=== PATIENT | female | born 1950 | race Caucasian/White ===

== ENCOUNTER → 2016-05-12 | Outpatient (REF) | payer MEDICARE | LOC: M SFHCPLAZ 15:56 | PROVIDERS: ATTEND Nurse Practitioner Adult Health | DX: R73.9 Hyperglycemia, unspecified (principal) ==

== ENCOUNTER → 2016-08-28 | Outpatient (CLI) | payer MEDICARE ==
--- NOTE | 2016-09-01 09:34 | DEXA ---
AP SPINE L1 - L4 1.287 0.7 1.6 LT FEMUR TOTAL 0.944 -0.5 0.3 RT FEMUR TOTAL 0.905 -0.8 0.0 TOTAL BODY TOTAL OTHER DUAL FEMUR FRAX* ASSESSMENT Risk factors: None. 10 year probability of fracture Major osteoporotic fracture 8.6 % Hip fracture 0.9 % COMMENTS: Normal bone densitometry of the spine. There is low bone density of hips. The density of the spine is increased 3.0% since initial exam on 08/2012. The spine density has decreased 0.1% since the most recent exam on 08/2014. The density of the left hip has decreased 1.6% since initial exam on 08/2012. The density of the left hip has decreased 1.9% since the most recent exam on 2014. The density of the right hip has increased 0.7% since the initial exam on 2012. The density of the right hip has decreased 0.8% since the most recent exam on 2014. FOLLOW-UP: Recommendation for the next bone density exam: 2 years. TOBI
== END ==
LOC: M WHC 12:59
PROVIDERS: ATTEND Nurse Practitioner Women's Health
DX: Z13.820 Encounter for screening for osteoporosis (principal); Z78.0 Asymptomatic menopausal state

== ENCOUNTER → 2016-10-16 | Outpatient (REF) | payer MEDICARE | LOC: M SFHCPLAZ 09:40 | PROVIDERS: ATTEND Nurse Practitioner Adult Health | DX: Z11.59 Encounter for screening for other viral diseases (principal) ==

== ENCOUNTER → 2016-10-19 | Outpatient (REF) | payer MEDICARE ==
[2016-10-19 14:53] LABS: IMMUNOGLOBULIN G 1140 MG/DL (681-1648); IMMUNOGLOBULIN M 132 MG/DL (40-230); TOTAL PROTEIN 7.4 GM/DL (6.4-8.2)
[2016-10-21 00:09] LABS: BETA 2 MICROGLOBULIN 1.9 mg/L (0.6-2.4); FREE KAPPA LIGHT CHAINS SERUM 24.3 mg/L (3.3-19.4); FREE LAMBDA LIGHT CHAINS SERUM 19.5 mg/L (5.7-26.3); KAPPA/LAMBDA RATIO SERUM 1.25 (0.26-1.65)
[2016-10-21 10:53] LABS: ALBUMIN 4.54 GM/DL (3.29-5.55); ALBUMIN % 61.3 % (55.8-66.1); GAMMA GLOBULIN % 16.1 % (11.1-18.8)
== END ==
LOC: M LAB REF 12:46
PROVIDERS: ATTEND Internal Medicine Medical Oncology
DX: D47.2 Monoclonal gammopathy (principal)

== ENCOUNTER → 2016-10-23 | Outpatient (CLI) | payer MEDICARE ==
--- NOTE | 2016-10-23 15:19 | REP ---
REASON: Monoclonal gammopathy. PRIORS: None. AP and lateral views of the skull show multiple lytic skull lesions. AP and lateral views of the cervical spine show the bones to be demineralized. Some vertebral bodies have a mild corduroy appearance. Degenerative change is seen throughout the cervical spine with disc space narrowing and osteophytosis, particularly C4-5 through C6-7. AP VIEW OF THE HUMERUS, BILATERAL: No evidence of a lytic or blastic osseous lesion. AP PELVIS: Subtle focal area of decreased density seen in the left femur greater trochanter. AP EXAMINATION, RIGHT FEMUR: There is no evidence of a lytic or blastic osseous lesion. AP EVALUATION OF THE LEFT FEMUR: No definite lytic or blastic osseous lesion. The subtle area of decreased density seen on the AP pelvis must have been artifactual. AP/LATERAL VIEWS OF THE THORACIC SPINE: A few thoracic vertebral bodies have a corduroy appearance. There is no definite evidence of a vertebral body lytic or blastic osseous lesion. There is degenerative change seen throughout the thoracic spine with disc space narrowing and anterior lipping. Vertebral body height is within normal limits. The pedicles appear to be intact bilaterally. AP/LATERAL VIEWS OF LUMBAR SPINE: There is a grade 1, L4 upon L5 spondylolisthesis with L2 on L3 and L3 on L4 retrolisthesis. Advanced disc space narrowing is seen at L2-3 with endplate sclerosis. There is narrowing of all disc spaces. Degenerative facet joint changes are present at L4-5 and L5-S1 bilaterally. There is no definite evidence of a lytic or blastic osseous lesion. The pedicles appear to be intact bilaterally. IMPRESSION: 1. Multiple lytic lesions, as described above, consistent with the patient's diagnosis. 2. Other findings as described above. 3. Possible irregular cortex with decreased density right 11th rib, very difficult to evaluate on the AP examination of the thoracic spine. Signed by Terrell Rico DO 10/23/2016 04:49 P
== END ==
LOC: M RAD 12:08
PROVIDERS: ATTEND Nurse Practitioner Family
DX: D47.2 Monoclonal gammopathy (principal)

== ENCOUNTER → 2016-11-04 | Outpatient (CLI) | payer MEDICARE ==
--- NOTE | 2016-11-04 08:20 | REP ---
CT Head without contrast HISTORY: monoclonal gammopathy COMPARISON: None There is no intraparenchymal hemorrhage, acute infarct, mass or midline shift. The ventricular system is normal in appearance. There is no extra cerebral collection. There is no fracture. There are several small lytic lesions in the calvarium. The visualized sinuses are clear. IMPRESSION: 1. There is no intracranial lesion. 2. There are several small lytic lesions in the calvarium. Signed by Luis Gracia MD 11/04/2016 08:12 A
== END ==
LOC: M RAD 07:21
PROVIDERS: ATTEND Internal Medicine Medical Oncology
DX: R93.7 Abnormal findings on diagnostic imaging of other parts of musculoskeletal system (principal)

== ENCOUNTER → 2016-11-19 | Outpatient (REF) | payer MEDICARE | LOC: M LAB REF 14:09 | PROVIDERS: ATTEND Internal Medicine Medical Oncology | DX: D47.2 Monoclonal gammopathy (principal); D69.3 Immune thrombocytopenic purpura ==

== ENCOUNTER → 2017-06-03 | Outpatient (REF) | payer MEDICARE ==
[2017-06-03 14:14] LABS: CHOLESTEROL LEVEL 170 MG/DL (<200); CHOLESTEROL RISK RATIO 2.615 (<5); HDL CHOLESTEROL 65 MG/DL (>40); NON-HDL-C 105 MG/DL; TRIGLYCERIDES LEVEL 80 MG/DL (<150)
[2017-06-03 15:14] LABS: ESTIMATED AVERAGE GLUCOSE 120 MG/DL (60-110); HEMOGLOBIN A1c 5.8 %
== END ==
LOC: M SFHCPLAZ 10:02
DX: M89.9 Disorder of bone, unspecified (principal); R73.03 Prediabetes; Z79.899 Other long term (current) drug therapy
CPT/HCPCS: 83036

== ENCOUNTER 2017-06-07 09:30 | Day surgery (SDC) | payer MEDICARE ==
[2017-06-07] MEDS: NS 1,000 ML IV (10:45)
[2017-06-07] MEDS ORDERED: LIDOCAINE 2% INJ 100 MG/5 ML SDV (FOR ANES.) As Ordered (10:47)
[2017-06-07] MEDS ORDERED: PROPOFOL 200 MG/20 ML VIAL As Ordered (10:47)
[2017-06-07] MEDS ORDERED: fentaNYL 100 MCG/2 ML INJECTION (J3010) As Ordered (11:38)
== END 2017-06-07 12:27 | disposition home or self-care (01) ==
LOC: M OPP 09:30
DX: R13.10 Dysphagia, unspecified (principal); F45.8 Other somatoform disorders; K22.2 Esophageal obstruction; K44.9 Diaphragmatic hernia without obstruction or gangrene; I34.1 Nonrheumatic mitral (valve) prolapse; E04.1 Nontoxic single thyroid nodule; K76.0 Fatty (change of) liver, not elsewhere classified; E80.4 Gilbert syndrome; R12 Heartburn; K21.9 Gastro-esophageal reflux disease without esophagitis; D47.2 Monoclonal gammopathy; D69.3 Immune thrombocytopenic purpura; R06.02 Shortness of breath; M19.90 Unspecified osteoarthritis, unspecified site; M54.89 Other dorsalgia; R21 Rash and other nonspecific skin eruption; F41.9 Anxiety disorder, unspecified; F32.9 Major depressive disorder, single episode, unspecified; G43.909 Migraine, unspecified, not intractable, without status migrainosus; G47.30 Sleep apnea, unspecified; J32.9 Chronic sinusitis, unspecified; Z87.891 Personal history of nicotine dependence; M62.81 Muscle weakness (generalized); Z88.0 Allergy status to penicillin; Z88.3 Allergy status to other anti-infective agents; Z88.5 Allergy status to narcotic agent; Z88.8 Allergy status to other drugs, medicaments and biological substances; Z91.048 Other nonmedicinal substance allergy status; Z79.899 Other long term (current) drug therapy; Z80.3 Family history of malignant neoplasm of breast
CPT/HCPCS: 43249

== ENCOUNTER → 2017-07-16 | Outpatient (REF) | payer MEDICARE ==
[2017-07-20 14:14] LABS: COPROPORPHYRIN I URINE 61 ug/L (0-15); COPROPORPHYRIN III URINE 8 ug/L (0-49); HEPTACARBOXYLPORPHYRIN URINE 8 ug/L (0-2); HEXACARBOXYLPORPHYRIN URINE <1 ug/L (0-1); PENTACARBOXYLPORPHYRIN URINE 2 ug/L (0-2); UROPORPHYRIN URINE 17 ug/L (0-20)
[2017-07-22 14:13] LABS: PORPHYRIN TOTAL PLASMA <0.1 ug/dL (0.0-1.0)
== END ==
LOC: M LAB REF 13:12
DX: D47.2 Monoclonal gammopathy (principal)
CPT/HCPCS: 84120

== ENCOUNTER → 2017-07-22 | Outpatient (CLI) | payer MEDICARE | LOC: M RAD 09:28 | DX: M89.9 Disorder of bone, unspecified (principal) | CPT/HCPCS: 78306 ==

== ENCOUNTER → 2017-07-30 | Outpatient (REF) | payer MEDICARE ==
[2017-08-05 00:07] LABS: PORPHOBILINOGEN RANDOM URINE 1.7 mg/L (0.0-2.0)
== END ==
LOC: M LAB REF 12:55
DX: D69.3 Immune thrombocytopenic purpura (principal); D47.2 Monoclonal gammopathy
CPT/HCPCS: 84110

== ENCOUNTER → 2017-09-02 | Outpatient (REF) | payer MEDICARE ==
[2017-09-02 16:32] LABS: ALBUMIN 4.1 GM/DL (3.2-5.2); ALBUMIN/GLOBULIN RATIO 1.32 (1.00-1.93); ALKALINE PHOSPHATASE 58 U/L (45-117); ALT/SGPT 24 U/L (12-78); ANION GAP 5 MEQ/L (8-16); AST/SGOT 15 U/L (7-37); BILIRUBIN,TOTAL 0.9 MG/DL (0.2-1.0); BLOOD UREA NITROGEN 18 MG/DL (7-18); CALCIUM LEVEL 8.8 MG/DL (8.8-10.2); CARBON DIOXIDE LEVEL 30 MEQ/L (21-32); CHLORIDE LEVEL 108 MEQ/L (98-107); CREATININE FOR GFR 0.69 MG/DL (0.55-1.30); GLOMERULAR FILTRATION RATE > 60.0 (>45); GLUCOSE, FASTING 86 MG/DL (70-100); POTASSIUM SERUM 4.4 MEQ/L (3.5-5.1); RHEUMATOID FACTOR QUANT < 10.0 IU/ML (<15.0); SODIUM LEVEL 143 MEQ/L (136-145); TOTAL PROTEIN 7.2 GM/DL (6.4-8.2)
[2017-09-02 17:17] LABS: HEMATOCRIT 42.2 % (36.0-47.0); MEAN CORPUSCULAR HEMOGLOBIN 26.1 pg (27.0-33.0); MEAN CORPUSCULAR HGB CONC 30.8 g/dl (32.0-36.5); MEAN CORPUSCULAR VOLUME 84.6 fl (80.0-96.0); PLATELET COUNT, AUTOMATED 132 10^3/uL (150-450); RED BLOOD COUNT 4.99 10^6/uL (4.00-5.40); RED CELL DISTRIBUTION WIDTH 19.7 % (11.5-14.5); WHITE BLOOD COUNT 7.2 10^3/uL (4.0-10.0)
[2017-09-02 17:56] LABS: ADD MANUAL DIFFER YES; DIFF SLIDE NUMBER 327; POS COUNT POS FLAG; POSITIVE MORPH POS FLAG
[2017-09-02 18:03] LABS: EOSINOPHILS 5 % (0-5); MONOCYTES 16 % (0-8); NEUTROPHILS 46 % (35-75)
[2017-09-02 18:21] LABS: ATYPICAL LYMPH 6 % (0-5); GIANT PLATELETS 1+; LYMPHOCYTES 27 % (16-52); PLATELET CLUMPS SMALL AMT; PLATELET ESTIMATE INVALID (NORMAL)
[2017-09-02 18:22] LABS: HOWELL-JOLLY BODIES 1+; MICROCYTOSIS 1+
[2017-09-02 18:23] LABS: ANISOCYTOSIS 3+
[2017-09-02 18:24] LABS: SCHISTOCYTES 1+
[2017-09-02 18:40] LABS: ERYTHROCYTE SEDIMENTATION RATE 1 mm/hr (0-30)
[2017-09-03 09:53] LABS: TOTAL 25(OH) VITAMIN D 34.1 NG/ML (30.0-100.0)
[2017-09-04 14:09] LABS: ANTINUCLEAR ANTIBODIES DIRECT Negative (Negative)
== END ==
LOC: M LABDRAWP 15:54
DX: R51 Headache (principal); Z68.34 Body mass index [BMI] 34.0-34.9, adult
CPT/HCPCS: 80053

== ENCOUNTER → 2017-09-13 | Outpatient (CLI) | payer MEDICARE | LOC: M RAD 13:07 | DX: M25.561 Pain in right knee (principal) | CPT/HCPCS: 73560 ==

== ENCOUNTER → 2017-10-14 | Outpatient (CLI) | payer MEDICARE | LOC: M RAD 13:32 | DX: M79.9 Soft tissue disorder, unspecified (principal); R22.42 Localized swelling, mass and lump, left lower limb | CPT/HCPCS: 76882 ==

== ENCOUNTER → 2017-11-05 | Outpatient (REF) | payer MEDICARE ==
[2017-11-05 11:22] LABS: ALBUMIN/GLOBULIN RATIO 1.33 (1.00-1.93); ALKALINE PHOSPHATASE 56 U/L (45-117); ALT/SGPT 26 U/L (12-78); ANION GAP 6 MEQ/L (8-16); AST/SGOT 16 U/L (7-37); BILIRUBIN,TOTAL 1.5 MG/DL (0.2-1.0); BLOOD UREA NITROGEN 17 MG/DL (7-18); CALCIUM LEVEL 8.4 MG/DL (8.8-10.2); CARBON DIOXIDE LEVEL 31 MEQ/L (21-32); CHLORIDE LEVEL 105 MEQ/L (98-107); CREATININE FOR GFR 0.75 MG/DL (0.55-1.30); GLOMERULAR FILTRATION RATE > 60.0 (>45); GLUCOSE, FASTING 103 MG/DL (70-100); POTASSIUM SERUM 4.2 MEQ/L (3.5-5.1); SODIUM LEVEL 142 MEQ/L (136-145)
== END ==
LOC: M SFHCPLAZ 09:18
DX: M25.579 Pain in unspecified ankle and joints of unspecified foot (principal)
CPT/HCPCS: 80053

== ENCOUNTER → 2017-11-08 | Outpatient (REF) | payer MEDICARE ==
[2017-11-08 21:25] LABS: CHLAMYDIA DNA AMPLIFICATION NEGATIVE (NEGATIVE); GC DNA AMPLIFICATION NEGATIVE (NEGATIVE)
== END ==
LOC: M SFHCWAGY 17:06
DX: N76.6 Ulceration of vulva (principal); Z11.3 Encounter for screening for infections with a predominantly sexual mode of transmission; N94.89 Other specified conditions associated with female genital organs and menstrual cycle
CPT/HCPCS: 87591

== ENCOUNTER → 2017-11-09 | Outpatient (CLI) | payer MEDICARE ==
[~2017-11-09] MED LIST: PROHANCE 279.3MG/ML 15ML VIAL (A9576) As Ordered; PROHANCE 279.3MG/ML 5ML VIAL (A9576) As Ordered
== END ==
LOC: M RAD 12:32
DX: D17.39 Benign lipomatous neoplasm of skin and subcutaneous tissue of other sites (principal); M77.32 Calcaneal spur, left foot
CPT/HCPCS: A9576

== ENCOUNTER → 2017-12-14 | Outpatient (REF) | payer MEDICARE ==
[2017-12-14 17:34] LABS: CPK CREATINE PHOSPHOKINASE 44 U/L (26-192)
[2017-12-14 17:34] LABS: C REACTIVE PROTEIN QUANTITATIV 0.38 MG/DL (0.00-0.30)
[2017-12-14 18:56] LABS: ERYTHROCYTE SEDIMENTATION RATE 2 mm/hr (0-30)
== END ==
LOC: M SFHCPLAZ 14:28
DX: M79.1 Myalgia (principal)
CPT/HCPCS: 82550

== ENCOUNTER → 2017-12-20 | Outpatient (REF) | payer MEDICARE ==
[2017-12-20 19:48] LABS: IMMUNOGLOBULIN G 944 MG/DL (681-1648); IMMUNOGLOBULIN M 108 MG/DL (40-230); TOTAL PROTEIN 6.3 GM/DL (6.4-8.2)
[2017-12-21 11:25] LABS: ALBUMIN 3.78 GM/DL (3.29-5.55); ALPHA-1-GLOBULIN % 3.9 % (2.9-4.9); ALPHA-1-GLOBULINS 0.25 GM/DL (0.17-0.41); ALPHA-2-GLOBULINS 0.59 GM/DL (0.42-0.99); ALPHA-2-GLOBULINS % 9.3 % (7.1-11.8); BETA-1-GLOBULINS 0.39 GM/DL (0.28-0.60); BETA-1-GLOBULINS % 6.2 % (4.7-7.2); BETA-2-GLOBULINS 0.32 GM/DL (0.19-0.55); BETA-2-GLOBULINS % 5.1 % (3.2-6.5); GAMMA GLOBULIN % 15.5 % (11.1-18.8)
[2017-12-21 11:26] LABS: GAMMA GLOBULINS 0.98 GM/DL (0.65-1.58)
[2017-12-23 00:10] LABS: FREE KAPPA LIGHT CHAINS SERUM 16.8 mg/L (3.3-19.4); FREE LAMBDA LIGHT CHAINS SERUM 17.7 mg/L (5.7-26.3); KAPPA/LAMBDA RATIO SERUM 0.95 (0.26-1.65)
[2017-12-23 00:10] LABS: BETA 2 MICROGLOBULIN 1.5 mg/L (0.6-2.4)
== END ==
LOC: M LAB REF 18:35
DX: D69.3 Immune thrombocytopenic purpura (principal); D47.2 Monoclonal gammopathy
CPT/HCPCS: 84165

== ENCOUNTER → 2017-12-23 | Outpatient (REF) | payer MEDICARE ==
[2017-12-23 16:59] LABS: BASO # 0.1 10^3/uL (0.0-0.2); BASO % 0.8 % (0.0-1.0); EOS # 0.5 10^3/uL (0.0-0.50); EOS % 4.5 % (0.0-3.0); HEMATOCRIT 42.5 % (36.0-47.0); HEMOGLOBIN 13.2 g/dl (12.0-15.5); IMMATURE GRANULOCYTE % 0.5 % (0-3.0); LYMPH # 2.3 10^3/uL (1.5-4.5); LYMPH % 21.6 % (24.0-44.0); MEAN CORPUSCULAR HEMOGLOBIN 26.4 pg (27.0-33.0); MEAN CORPUSCULAR HGB CONC 31.1 g/dl (32.0-36.5); MONO % 9.1 % (0.0-5.0); NEUTROPHILS # 6.7 10^3/uL (1.8-7.7); NEUTROPHILS % 63.5 % (36.0-66.0); WHITE BLOOD COUNT 10.5 10^3/uL (4.0-10.0)
[2017-12-23 17:36] LABS: C REACTIVE PROTEIN QUANTITATIV 0.45 MG/DL (0.00-0.30)
[2017-12-23 19:21] LABS: POS COUNT POS FLAG; POSITIVE MORPH POS FLAG; SUSPECT SAMPLE POS FLAG
[2017-12-23 19:22] LABS: ADD MORPHOLOGY? YES
[2017-12-23 19:45] LABS: GIANT PLATELETS 2+; PLATELET CLUMPS SMALL AMT
[2017-12-23 19:47] LABS: ANISOCYTOSIS 1+; POIKILOCYTOSIS 1+
[2017-12-23 19:51] LABS: BURR CELLS 1+; HOWELL-JOLLY BODIES 1+
[2017-12-23 20:04] LABS: ERYTHROCYTE SEDIMENTATION RATE 2 mm/hr (0-30)
== END ==
LOC: M SFHCPLAZ 08:08
DX: D72.829 Elevated white blood cell count, unspecified (principal); M79.1 Myalgia
CPT/HCPCS: 86140

== ENCOUNTER → 2018-01-25 | Outpatient (REF) | payer MEDICARE ==
[2018-01-25 18:23] LABS: ALBUMIN 3.8 GM/DL (3.2-5.2); ALBUMIN/GLOBULIN RATIO 1.27 (1.00-1.93); ALKALINE PHOSPHATASE 65 U/L (45-117); ALT/SGPT 27 U/L (12-78); ANION GAP 9 MEQ/L (8-16); AST/SGOT 21 U/L (7-37); BILIRUBIN,TOTAL 1.2 MG/DL (0.2-1.0); BLOOD UREA NITROGEN 19 MG/DL (7-18); CALCIUM LEVEL 8.3 MG/DL (8.8-10.2); CARBON DIOXIDE LEVEL 28 MEQ/L (21-32); CHLORIDE LEVEL 106 MEQ/L (98-107); CREATININE FOR GFR 0.79 MG/DL (0.55-1.30); FREE T4 0.96 NG/DL (0.76-1.46); GLOMERULAR FILTRATION RATE > 60.0 (>45); GLUCOSE, FASTING 94 MG/DL (70-100); NT-PRO BNP 76 PG/ML (<125); POTASSIUM SERUM 4.2 MEQ/L (3.5-5.1); SODIUM LEVEL 143 MEQ/L (136-145); THYROID STIMULATING HORMONE 0.974 uIU/ML (0.358-3.740); TOTAL PROTEIN 6.8 GM/DL (6.4-8.2)
[2018-01-25 18:53] LABS: BASO # 0.1 10^3/uL (0.0-0.2); BASO % 1.1 % (0.0-1.0); EOS # 0.4 10^3/uL (0.0-0.50); EOS % 3.6 % (0.0-3.0); HEMATOCRIT 41.7 % (36.0-47.0); HEMOGLOBIN 12.7 g/dl (12.0-15.5); IMMATURE GRANULOCYTE % 0.2 % (0-3.0); LYMPH # 2.6 10^3/uL (1.5-4.5); LYMPH % 25.8 % (24.0-44.0); MEAN CORPUSCULAR HEMOGLOBIN 26.1 pg (27.0-33.0); MEAN CORPUSCULAR HGB CONC 30.5 g/dl (32.0-36.5); MEAN CORPUSCULAR VOLUME 85.8 fl (80.0-96.0); MONO # 1.3 10^3/uL (0.0-0.8); MONO % 12.9 % (0.0-5.0); NEUTROPHILS # 5.6 10^3/uL (1.8-7.7); NEUTROPHILS % 56.4 % (36.0-66.0); PLATELET COUNT, AUTOMATED 133 10^3/uL (150-450); RED BLOOD COUNT 4.86 10^6/uL (4.00-5.40); RED CELL DISTRIBUTION WIDTH 19.2 % (11.5-14.5)
== END ==
LOC: M SFHCWAGY 14:49
DX: R60.0 Localized edema (principal); D72.829 Elevated white blood cell count, unspecified
CPT/HCPCS: 84443

== ENCOUNTER → 2018-06-13 | Outpatient (CLI) | payer MEDICARE ==
[~2018-06-13] MED LIST changes: +ADULCHW2 PO; +ESTR1MIS PV; +FLAX10005 PO; +MAGN400C2 PO; +NASA1SPR; +PRIS100T PO; +PROAAER10 INH; -PROHANCE 279.3MG/ML 15ML VIAL (A9576) As Ordered; -PROHANCE 279.3MG/ML 5ML VIAL (A9576) As Ordered; +RANI300T PO; +SUCR1TA PO; +SYST1SOL OU; +TURM500C3 PO; +VITA2000 PO
--- NOTE | 2018-06-13 19:45 | REP ---
KUB: Two views. History: Abdominal distension. Comparison images are from October 23, 2016. Findings: There are surgical clips in the right upper and left upper quadrant. Bowel gas pattern is normal. There is no evidence of mass, organomegaly, or pathologic calcification. Psoas margins and flank stripes are intact. Impression: Clips in the upper abdomen bilaterally. Otherwise negative. Electronically Signed by Frank Weiss MD 06/13/2018 09:00 P
== END ==
LOC: M WUC 18:01
PROVIDERS: ATTEND Family Medicine
DX: R14.0 Abdominal distension (gaseous) (principal); Z96.89 Presence of other specified functional implants

== ENCOUNTER → 2018-10-03 | Outpatient (REF) | payer MEDICARE ==
[~2018-10-03] MED LIST changes: +BUPR15TA PO; +MOBI4TAB PO
[2018-10-03 18:07] LABS: TOTAL PROTEIN 7.9 GM/DL (6.4-8.2)
[2018-10-05 11:41] LABS: ALBUMIN 4.92 GM/DL (3.29-5.55); ALBUMIN % 62.3 % (55.8-66.1); ALPHA-1-GLOBULIN % 3.8 % (2.9-4.9); ALPHA-2-GLOBULINS 0.67 GM/DL (0.42-0.99); ALPHA-2-GLOBULINS % 8.5 % (7.1-11.8); BETA-1-GLOBULINS 0.44 GM/DL (0.28-0.60); BETA-1-GLOBULINS % 5.6 % (4.7-7.2); BETA-2-GLOBULINS 0.39 GM/DL (0.19-0.55); BETA-2-GLOBULINS % 4.9 % (3.2-6.5); GAMMA GLOBULIN % 14.9 % (11.1-18.8); GAMMA GLOBULINS 1.18 GM/DL (0.65-1.58)
== END ==
LOC: M LABDRAW1 15:24
PROVIDERS: ATTEND Orthopaedic Surgery
DX: M16.12 Unilateral primary osteoarthritis, left hip (principal)

== ENCOUNTER → 2018-11-02 | Outpatient (CLI) | payer MEDICARE ==
[~2018-11-02] MED LIST changes: +TRAV04OPD OP
--- NOTE | 2018-11-02 18:29 | REP ---
WHOLE BODY BONE SCAN: Following the intravenous administration of 22 millicuries of technetium 99M MDP, patient's whole body was imaged in the anterior and posterior projections with additional oblique and lateral views obtained. Comparison made with prior study of 07/22/2017. There is scattered mild uptake in various portions of the entire spine appearing quite similar to the prior study and most consistent with scattered arthritis uptake in the hands and left knee. No abnormal calvarial uptake was seen. No abnormal uptake is seen in the proximal femurs bilaterally. Renal and bladder activity is seen. IMPRESSION: Stable bone scan findings as discussed in detail above compared to the prior study of 07/22/2017, there appears to be scattered arthritic uptake with no new findings. No abnormal uptake in either hip. Electronically Signed by Tam Cobos MD 11/03/2018 07:54 A
== END ==
LOC: M RAD 09:33
PROVIDERS: ATTEND Orthopaedic Surgery
DX: M16.12 Unilateral primary osteoarthritis, left hip (principal)
CPT/HCPCS: 78306; A9503

== ENCOUNTER → 2019-01-03 | Outpatient (REF) | payer MEDICARE ==
[2019-01-03 17:35] LABS: HEMOGLOBIN A1c 5.4 %
== END ==
LOC: M SFHCPLAZ 15:30
PROVIDERS: ATTEND Family Medicine
DX: Z13.1 Encounter for screening for diabetes mellitus (principal)

== ENCOUNTER → 2019-03-03 | Outpatient (REF) | payer MEDICARE ==
[2019-03-03 12:35] LABS: BLOOD UREA NITROGEN 16 MG/DL (7-18); CALCIUM LEVEL 9.3 MG/DL (8.8-10.2); CARBON DIOXIDE LEVEL 29 MEQ/L (21-32); CHLORIDE LEVEL 106 MEQ/L (98-107); CREATININE FOR GFR 0.78 MG/DL (0.55-1.30); GLOMERULAR FILTRATION RATE > 60.0 (>39); GLUCOSE, FASTING 104 MG/DL (70-100); POTASSIUM SERUM 4.5 MEQ/L (3.5-5.1); SODIUM LEVEL 141 MEQ/L (136-145)
== END ==
LOC: M SFHCPLAZ 10:23
PROVIDERS: ATTEND Family Medicine
DX: S03.00XA Dislocation of jaw, unspecified side, initial encounter (principal); X58.XXXA Exposure to other specified factors, initial encounter; Y92.9 Unspecified place or not applicable; Z79.899 Other long term (current) drug therapy

== ENCOUNTER → 2019-05-16 | Outpatient (CLI) | payer MEDICARE ==
[~2019-05-16] MED LIST changes: +CALC500T68 PO; +OCUVCAP2 PO; +RANI150T14 PO; +VITA30004 PO
--- NOTE | 2019-05-16 13:12 | REP ---
Clinical: Monoclonal gammopathy. Technique: Standard adult bone survey (16 total images). Comparison: 10/23/2016 Findings: AP and lateral views of the calvarium demonstrate stable lytic lesions up to 7 mm unchanged from 2017. The remainder of the examination demonstrates degenerative changes primarily involving the cervical and lumbar spine with stable disc space obliteration and retrolisthesis at the L2-3 as well as mild anterolisthesis at L4-5. No further significant sclerotic, lytic, or blastic osseous lesions are identified. Impression: 1. Stable lytic lesions in the calvarium. 2. No further pathologic osseous lesions noted. 3. Relatively stable degenerative changes primarily involving the lumbar and cervical spine. Electronically Signed by Jonathan Espinoza MD 05/16/2019 01:03 P
== END ==
LOC: M RAD 11:41
PROVIDERS: ATTEND Internal Medicine Hematology & Oncology
DX: D47.2 Monoclonal gammopathy (principal)

== ENCOUNTER → 2019-05-19 | Outpatient (REF) | payer MEDICARE ==
[~2019-05-19] MED LIST changes: +MULTCHW12 PO
== END ==
LOC: M LAB REF 11:18
PROVIDERS: ATTEND Internal Medicine Hematology & Oncology
DX: D47.2 Monoclonal gammopathy (principal)

== ENCOUNTER 2019-09-30 12:50 | Emergency (ER) | payer MEDICARE ==
[~2019-09-30] VITALS: Ht 160 cm; Wt 83.0 kg
[2019-09-30] MEDS ORDERED: FAMO1TAB11 PO (13:28)
[2019-09-30] MEDS ORDERED: [UNRECOGNIZED DRUG - OTHER] (13:28)
[2019-09-30] MEDS ORDERED: FLUTISP (13:28)
[2019-09-30] MEDS ORDERED: ESTR0.1C5 (13:28)
--- NOTE | 2019-09-30 14:17 | REP ---
Clinical: Right calf pain . Technique: Cobos scale and color Doppler evaluation the lower extremity using linear high frequency transducer. Findings: Ultrasound examination of the right lower extremity deep venous structures from the common femoral vein to the popliteal vein demonstrates normal compressibility flow and wave patterns in response to respiration and augmentation. There is no evidence for deep venous thrombosis. Impression: No evidence for deep venous thrombosis lower extremity . Electronically Signed by Jonathan Espinoza MD 09/30/2019 02:08 P
[2019-09-30] MEDS ORDERED: IBUP80TA PO (14:46)
[2019-09-30 14:58] VITALS: BP 148/85
== END 2019-09-30 15:02 | disposition home or self-care (01) ==
LOC: M ED 12:50
DX: M54.31 Sciatica, right side (principal); R73.03 Prediabetes; K21.9 Gastro-esophageal reflux disease without esophagitis; F41.9 Anxiety disorder, unspecified; F32.9 Major depressive disorder, single episode, unspecified; Z88.0 Allergy status to penicillin; Z88.5 Allergy status to narcotic agent; Z88.8 Allergy status to other drugs, medicaments and biological substances

== ENCOUNTER → 2019-10-04 | Outpatient (REF) | payer MEDICARE ==
[~2019-10-04] MED LIST changes: +ESTR0.1C5; +FAMO1TAB11 PO; +FLUTISP; +IBUP80TA PO; +[UNRECOGNIZED DRUG - OTHER]
[2019-10-12 16:09] LABS: BARTONELLA DNA PCR Negative (Negative); VARICELLA ZOSTER VIRUS PCR Positive (Negative)
== END ==
LOC: M SFHCPLAZ 11:15
PROVIDERS: ATTEND Family Medicine
DX: R23.8 Other skin changes (principal)

== ENCOUNTER → 2019-10-05 | Outpatient (CLI) | payer MEDICARE ==
[2019-10-05 14:37] LABS: HEMATOCRIT 40.4 % (36.0-47.0); HEMOGLOBIN 12.8 g/dl (12.0-15.5); MEAN CORPUSCULAR HEMOGLOBIN 26.2 pg (27.0-33.0); MEAN CORPUSCULAR HGB CONC 31.7 g/dl (32.0-36.5); MEAN CORPUSCULAR VOLUME 82.8 fl (80.0-96.0); PLATELET COUNT, AUTOMATED 132 10^3/uL (150-450); RED BLOOD COUNT 4.88 10^6/uL (4.00-5.40); WHITE BLOOD COUNT 7.4 10^3/uL (4.0-10.0)
[2019-10-05 15:00] LABS: BLOOD UREA NITROGEN 11 MG/DL (7-18); CALCIUM LEVEL 8.9 MG/DL (8.8-10.2); CARBON DIOXIDE LEVEL 27 MEQ/L (21-32); CHLORIDE LEVEL 109 MEQ/L (98-107); CREATININE FOR GFR 0.78 MG/DL (0.55-1.30); GLOMERULAR FILTRATION RATE > 60.0 (>39); GLUCOSE, FASTING 105 MG/DL (70-100); POTASSIUM SERUM 3.8 MEQ/L (3.5-5.1); SODIUM LEVEL 142 MEQ/L (136-145)
[2019-10-05 15:14] LABS: ERYTHROCYTE SEDIMENTATION RATE 3 mm/hr (0-30)
[2019-10-05 15:17] LABS: ATYPICAL LYMPH 6 % (0-5); BASOPHILS 2 % (0-1); EOSINOPHILS 2 % (0-3); LYMPHOCYTES 42 % (16-44); MONOCYTES 5 % (0-5); NEUTROPHILS 43 % (28-66)
[2019-10-05 15:19] LABS: ANISOCYTOSIS 1+; MICROCYTOSIS 1+; PLATELET ESTIMATE DECREASED (NORMAL); POIKILOCYTOSIS 1+
[2019-10-17 10:08] LABS: Lyme Disease IgG/IgM Antibodie <0.91 ISR (0.00-0.90); Lyme Disease IgM Ab Quantitati <0.80 index (0.00-0.79); UNITSIGA FOR GLIADIN IGA 3 units (0-19); UNITSIGG FOR GLIADIN IGG 4 units (0-19)
== END ==
LOC: M PLALAB 11:43
PROVIDERS: ATTEND Student in an Organized Health Care Education/Training Program
DX: R23.8 Other skin changes (principal)

== ENCOUNTER → 2019-11-08 | Outpatient (CLI) | payer MEDICARE ==
--- NOTE | 2019-12-19 14:55 | DEXA ---
AP SPINE L1 - L4 1.329 1.2 2.9 LT FEMUR TOTAL 0.911 -0.8 0.7 LT NECK 0.870 -1.2 0.5 RT FEMUR TOTAL 0.886 -1.0 0.5 RT NECK 0.896 -1.0 0.7 TOTAL BODY TOTAL OTHER COMMENTS: There is low bone density of the hips. The increased density of the spine does represent significant change. The decreased density of the left hip does represent a significant change. The decreased density of the right hip does represent a significant change. The density of the spine has increased 6.4% since the initial exam on 08/31/2012. The increased 3.3% since the most recent exam on 08/28/2016. The density of the left hip has decreased 5.0% since the initial exam on 08/31/2012. The density of the left hip has decreased 3.5% since the most recent exam on 08/28/2016. The density of the right hip has decreased 1.4% since the initial exam on 08/31/2012. The density of the right hip has decreased 2.1% since the most recent exam on 08/28/2016. FOLLOW-UP: Recommendation for the next bone density exam: 2 years. TOBI
== END ==
LOC: M WHC 06:48
PROVIDERS: ATTEND Nurse Practitioner Women's Health
DX: N95.1 Menopausal and female climacteric states (principal); M85.851 Other specified disorders of bone density and structure, right thigh; M85.852 Other specified disorders of bone density and structure, left thigh

== ENCOUNTER → 2020-04-08 | Outpatient (REF) | payer MEDICARE | LOC: M SFHCWAGY 13:15 | PROVIDERS: ATTEND Nurse Practitioner Family | DX: N76.3 Subacute and chronic vulvitis (principal) ==

== ENCOUNTER → 2021-05-07 | Outpatient (CLI) | payer MEDICARE ==
[~2021-05-07] MED LIST changes: +CALCTAB89 PO; +CLOB0.0548 TOP; +D31000TA2 PO; +KETO2CR TOP; +OMEG10005 PO
== END ==
LOC: M SLEEP 11:00
PROVIDERS: ATTEND Nurse Practitioner Adult Health
DX: G47.30 Sleep apnea, unspecified (principal)

== ENCOUNTER → 2021-11-25 | Outpatient (CLI) | payer MEDICARE ==
[~2021-11-25] MED LIST changes: -D31000TA2 PO; +LISI5TAB11 PO; +PIME1CRE; +VITA100093 PO
== END ==
LOC: M RAD 08:15
PROVIDERS: ATTEND Internal Medicine Hematology & Oncology
DX: K76.89 Other specified diseases of liver (principal); E80.21 Acute intermittent (hepatic) porphyria; D47.2 Monoclonal gammopathy; D64.9 Anemia, unspecified; E80.4 Gilbert syndrome

== ENCOUNTER → 2023-10-20 | Outpatient (CLI) | payer MEDICARE ==
[~2023-10-20] MED LIST changes: -ESTR1MIS PV; +ESTR1VAG3 PV
== END ==
LOC: M SOG 07:56
PROVIDERS: ATTEND Physician Assistant
DX: M79.644 Pain in right finger(s) (principal); M79.645 Pain in left finger(s)

== ENCOUNTER 2024-01-17 11:18 | Day surgery (SDC) | payer MEDICARE ==
[~2024-01-17] VITALS: Ht 157.5 cm; Wt 76.8 kg
[~2024-01-17 11:18] MED LIST changes: +ATIV1TAB10 PO; +LR 1,000 ML IV SCH; +MULTCHW14 PO; +SERT50TA29 PO; +TRAZ1TAB11 PO
[2024-01-17] MEDS ORDERED: fentaNYL 100 MCG/2 ML INJECTION As Ordered ONE (12:44)
[2024-01-17] MEDS ORDERED: MIDAZOLAM INJ 2MG/2ML VIAL As Ordered ONE (12:44)
[2024-01-17] MEDS: PHENYLEPHRINE 2.5% OPHTH SOL 2ML OD SCH (13:57)
[2024-01-17] MEDS: FLURBIPROFEN 0.03% OPHTH SOLN 2.5 ML OD SCH (13:57)
[2024-01-17] MEDS: ATROPINE SULFATE 1% OPHTH SOLN 2ML BTL OD SCH (13:57)
[2024-01-17] MEDS: TETRACAINE 0.5% OPHTH SOLN 4ML OD SCH (13:57)
[2024-01-17] MEDS: LIDOCAINE 1% SDV 5ML VIAL As Ordered ONE (14:33)
[2024-01-17] MEDS: MOXIFLOXACIN 0.6MG/0.4ML INTRAOCULAR SYRINGE As Ordered ONE (14:46)
[2024-01-17 15:00] VITALS: BP 141/78; TEMP 97.3; O2SAT 97
== END 2024-01-17 15:25 | disposition home or self-care (01) ==
LOC: M SDC 11:18
PROVIDERS: ATTEND Ophthalmology
DX: H25.11 Age-related nuclear cataract, right eye (principal); G47.30 Sleep apnea, unspecified; I05.9 Rheumatic mitral valve disease, unspecified; Z88.0 Allergy status to penicillin; Z88.1 Allergy status to other antibiotic agents; Z88.5 Allergy status to narcotic agent; Z88.3 Allergy status to other anti-infective agents; Z91.048 Other nonmedicinal substance allergy status
CPT/HCPCS: 66984; J2250; J3010; V2632

== ENCOUNTER → 2024-02-16 | Outpatient (CLI) | payer MEDICARE ==
[~2024-02-16] MED LIST changes: -LR 1,000 ML IV SCH
== END ==
LOC: M RAD 15:29
PROVIDERS: ATTEND Registered Nurse
DX: R06.02 Shortness of breath (principal)

== ENCOUNTER → 2024-06-05 | Outpatient (CLI) | payer MEDICARE | LOC: M RAD 14:13 | PROVIDERS: ATTEND Registered Nurse | DX: M79.606 Pain in leg, unspecified (principal); M17.0 Bilateral primary osteoarthritis of knee ==

== ENCOUNTER 2024-06-07 10:23 | Emergency (ER) | payer MEDICARE ==
[2024-06-07 10:27] VITALS: TEMP 97.6
[2024-06-07 13:31] LABS: HEMATOCRIT 37.7 % (36.0-47.0); HEMOGLOBIN 11.8 g/dl (12.0-15.5); MEAN CORPUSCULAR HEMOGLOBIN 26.9 pg (27.0-33.0); MEAN CORPUSCULAR HGB CONC 31.3 g/dl (32.0-36.5); MEAN CORPUSCULAR VOLUME 85.9 fl (80.0-96.0); PLATELET COUNT, AUTOMATED 152 10^3/uL (150-450); RED BLOOD COUNT 4.39 10^6/uL (4.00-5.40); WHITE BLOOD COUNT 9.2 10^3/uL (4.0-10.0)
[2024-06-07 14:03] LABS: EOSINOPHILS 2 % (0-3); LYMPHOCYTES 6 % (16-44); MONOCYTES 15 % (0-5); NEUTROPHILS 77 % (28-66)
[2024-06-07 14:07] LABS: PLATELET ESTIMATE NORMAL (NORMAL)
[2024-06-07 14:09] LABS: GIANT PLATELETS 1+
[2024-06-07 14:42] VITALS: BP 118/58; O2SAT 98
== END 2024-06-07 14:43 | disposition home or self-care (01) ==
LOC: M ED 11:08
DX: S80.01XA Contusion of right knee, initial encounter (principal); W19.XXXA Unspecified fall, initial encounter; Y92.009 Unspecified place in unspecified non-institutional (private) residence as the place of occurrence of the external cause; Y93.9 Activity, unspecified; Y99.9 Unspecified external cause status; G47.33 Obstructive sleep apnea (adult) (pediatric); G43.819 Other migraine, intractable, without status migrainosus; Z79.899 Other long term (current) drug therapy; Z91.89 Other specified personal risk factors, not elsewhere classified; Z88.0 Allergy status to penicillin; Z88.5 Allergy status to narcotic agent; Z88.8 Allergy status to other drugs, medicaments and biological substances; Z88.1 Allergy status to other antibiotic agents

== ENCOUNTER → 2024-06-09 | Outpatient (CLI) | payer MEDICARE | LOC: M SOG 13:51 | PROVIDERS: ATTEND Physician Assistant | DX: M79.661 Pain in right lower leg (principal); M25.571 Pain in right ankle and joints of right foot ==